=== PATIENT | female | born 1955 | race Caucasian/White ===

== ENCOUNTER → 2018-08-15 10:24 | Outpatient (CLI) | payer OTHER, SELFPAY ==
--- NOTE | 2018-08-15 10:25 | DI.US.S_ITS ---
LIMITED ULTRASOUND OF LEFT BREAST: 08/15/2018 CLINICAL: Follow up from addtional views. Comparison is made to exams dated: 08/15/2018 mammogram, 01/15/2018 mammogram, 07/18/2017 breast MRI - [facility], 07/08/2017 ultrasound, and 07/08/2017 mammogram - [facility]. Real-time and Doppler ultrasound of the left breast upper outer quadrant/axillary tail/axilla were performed. Reilly scale images of the real-time examination were reviewed. No underlying breast mass or abnormality is identified. There is no ultrasound correlate for the previously noted stable 1.8 cm asymmetry in the left breast posterior depth superior region seen on the mediolateral oblique view only. This asymmetry was similar in appearance on diagnostic mammography performed immediately prior to this ultrasound exam to prior comparison mammograms of 06/26/17 and 01/15/18, and appeared to correlate with the findings seen on breast MRI of 07/18/2017. IMPRESSION: PROBABLY BENIGN No ultrasound correlate for the previously noted stable 1.8 cm asymmetry in the left breast posterior depth superior region seen on the mediolateral oblique view only of comparison diagnostic mammograms. A follow-up diagnostic mammogram and possible ultrasound in 6 months is recommended to demonstrate stability. These results and recommendations were discussed with the patient at the time of the exam by Dr. Alarcon by telephone. The patient was advised to monitor her breasts and to return sooner for re-evaluation should she feel anything grow or change. This exam was interpreted at Station ID: [id number]. Electronically Signed By: Jose D Alarcon M.D. ecl/:08/16/2018 09:45:34 letter sent: Followup Recommended Ultrasound BI-RADS: 3 Probably benign
--- NOTE | 2018-08-15 10:25 | DI.MG.S_ITS ---
BILATERAL DIGITAL DIAGNOSTIC MAMMOGRAM 3D/2D: 08/15/2018 CLINICAL: Short term follow up left breast, due bilaterally. Comparison is made to exams dated: 01/15/2018 mammogram - [facility], 07/08/2017 mammogram - [facility], 06/26/2017 mammogram, 06/01/2016 mammogram, 07/18/2017 breast MRI - [facility], and 07/08/2017 ultrasound - [facility]. The tissue of both breasts is extremely dense, which lowers the sensitivity of mammography. There is a stable 1.8 cm asymmetry in the left breast posterior depth superior region seen on the mediolateral oblique view only, which is similar in appearance to prior comparison mammograms of 06/26/17 and 01/15/18, and appears to correlate with the findings seen on breast MRI of 07/18/2017. A linear scar marker projects over the upper outer left breast. No other significant masses, calcifications, or other findings are seen in either breast. IMPRESSION: INCOMPLETE: NEEDS ADDITIONAL IMAGING EVALUATION Stable 1.8 cm asymmetry in the left breast posterior depth superior region seen on the mediolateral oblique view only. A targeted ultrasound is recommended for further evaluation, and will be performed immediately following this exam. This exam was interpreted at Station ID: [id number]. NOTE: For mammograms, a report in lay terms will be sent to the patient. Approximately 15% of breast malignancies will not be visualized mammographically. In the management of a palpable breast mass, a negative mammogram must not discourage biopsy of a clinically suspicious lesion. Electronically Signed By: Jose D Alarcon M.D. ecl/:08/16/2018 09:40:50 letter sent: Additional Imaging Needed ACR BI-RADS Category 0: Incomplete 3340F
== END ==
PROVIDERS: Family Provider Obstetrics & Gynecology; PCP Obstetrics & Gynecology; Visit Provider Obstetrics & Gynecology
DX: R92.8 Other abnormal and inconclusive findings on diagnostic imaging of breast (principal); N64.89 Other specified disorders of breast
CPT/HCPCS: 76642; 77066; G0279

== ENCOUNTER → 2019-04-14 14:46 | Outpatient (CLI) | payer OTHER, SELFPAY ==
--- NOTE | 2019-04-14 14:48 | DI.MG.S_ITS ---
UNILATERAL LEFT DIGITAL DIAGNOSTIC MAMMOGRAM 3D/2D SHORT-TERM FOLLOW-UP: 04/14/2019 CLINICAL: Patient returns for a 6 month follow up of the left breast. Comparison is made to exams dated: 08/15/2018 mammogram, 01/15/2018 mammogram, 07/18/2017 breast MRI - [facility], 07/08/2017 mammogram - [facility], 06/26/2017 mammogram - [facility], and 07/08/2017 ultrasound - [facility]. The tissue of left breast is heterogeneously dense. This may lower the sensitivity of mammography. There is an oval equal density asymmetry with indistinct margins in the left breast posterior depth superior region seen on the mediolateral oblique view only. This is not significantly changed over time compared to prior studies dating back to 06/26/17. No other significant masses or calcifications are seen in the breast. IMPRESSION: PROBABLY BENIGN The oval equal density asymmetry in the left breast is probably benign. A follow-up mammogram in 6 months is recommended to demonstrate 2 year stability. A follow-up mammogram in 6 months is recommended to demonstrate stability. Findings were discussed with Dr. Logan by phone at the conclusion of the exam. This exam was interpreted at Station ID: [id number]. NOTE: For mammograms, a report in lay terms will be sent to the patient. Approximately 15% of breast malignancies will not be visualized mammographically. In the management of a palpable breast mass, a negative mammogram must not discourage biopsy of a clinically suspicious lesion. Electronically Signed By: Leno jackson/:04/14/2019 15:47:51 letter sent: Followup Recommended ACR BI-RADS Category 3: Probably benign [id number]
== END ==
PROVIDERS: PCP Obstetrics & Gynecology; Visit Provider Obstetrics & Gynecology
DX: R92.8 Other abnormal and inconclusive findings on diagnostic imaging of breast (principal)
CPT/HCPCS: 77065; G0279

== ENCOUNTER → 2019-04-30 10:22 | Outpatient (CLI) | payer OTHER, SELFPAY ==
[2019-04-30 11:01] LABS: Add Manual Diff / Slide Review NO; Basophils Absolute Auto 0 /uL (0-100); Basophils Percent Auto 0.3 % (0-2); Eosinophils Absolute Auto 200 /uL (0-450); Eosinophils Percent Auto 3.3 % (2-4); Hematocrit 42.2 % (36-46); Lymphocytes Absolute Auto 2000 /uL (1100-4500); Lymphocytes Percent Auto 27.7 % (25-40); Mean Corpuscular HGB Conc 33.3 % (30-36); Mean Corpuscular Hemoglobin 30.8 PG (26-34); Mean Corpuscular Volume 92.5 fL (80-100); Monocytes Absolute Auto 600 /uL (0-900); Monocytes Percent Auto 8.9 % (3-14); Neutrophils Absolute Auto 4300 /uL (1500-7000); Neutrophils Percent Auto 59.8 % (50-75); Platelet Count 239 X10^3/uL (150-400); Red Blood Cell Count 4.56 X10^6/uL (4.0-5.2); Red Cell Distribution Width 13.4 % (11.6-14.8); White Blood Cell Count 7.1 X10^3/uL (4.5-11.0)
[2019-04-30 11:21] LABS: Alanine Aminotransferase 17 IU/L (9-52); Albumin Globulin Ratio 1.5 (1.0-2.8); Alkaline Phosphatase 44 U/L (38-126); Aspartate Aminotransferase 22 IU/L (14-36); BUN Creatinine Ratio 22.9 (6-22); Bilirubin Total 0.8 mg/dL (0.2-1.3); Blood Urea Nitrogen 16 mg/dL (7-17); Calcium 9.3 mg/dL (8.4-10.2); Carbon Dioxide 28 mmol/L (22-32); Chloride 103 mmol/L (98-107); Cholesterol 191 mg/dL (140-199); Estimated Glomerular Filt Rate > 60.0 mL/min (>60); Globulin 2.7 g/dL (1.7-4.1); Glucose 92 mg/dL (80-110); HDL Cholesterol 59 mg/dL (40-60); HEMOLYSIS < 15 (0-50); LDL Cholesterol Calculated 119 mg/dL (<100); Potassium 4.4 mmol/L (3.4-5.1); Sodium 140 mmol/L (137-145); Total Protein 6.7 g/dL (6.3-8.2); Triglycerides 64 mg/dL (35-150)
[2019-04-30 11:33] LABS: Free T4, Direct Thyroxine 1.17 ng/dL (0.78-2.19)
[2019-04-30 11:48] LABS: Thyroid Stimulating Hormone 1.82 uIU/mL (0.47-4.68)
== END ==
PROVIDERS: PCP Obstetrics & Gynecology; Visit Provider Obstetrics & Gynecology
DX: E03.9 Hypothyroidism, unspecified (principal)
CPT/HCPCS: 36415; 80053; 80061; 84439; 84443; 85025

== ENCOUNTER → 2019-10-12 09:30 | Outpatient (CLI) | payer OTHER, SELFPAY ==
--- NOTE | 2019-10-12 09:31 | DI.MG.S_ITS ---
BILATERAL DIGITAL DIAGNOSTIC MAMMOGRAM 3D/2D: 10/12/2019 CLINICAL: Short term follow up left breast for 2 years, due bilaterally. Comparison is made to exams dated: 04/14/2019 mammogram, 08/15/2018 ultrasound, 08/15/2018 mammogram, 07/18/2017 breast MRI - [facility], 07/08/2017 mammogram, and 07/08/2017 ultrasound - [facility]. The tissue of both breasts is heterogeneously dense. This may lower the sensitivity of mammography. There is an oval equal density asymmetry with an indistinct margin in the left breast posterior depth superior region seen on the mediolateral oblique view only. This is not significantly changed compared to the prior studies but correlates to the area of reported new pain. There also is an oval equal density asymmetry with an indistinct margin in the left breast at 6 o'clock middle depth. This is less prominent on additional views. No other significant masses, calcifications, or other findings are seen in either breast. IMPRESSION: INCOMPLETE: NEEDS ADDITIONAL IMAGING EVALUATION The oval equal density asymmetry in the left breast posterior depth superior region seen on the mediolateral oblique view only is stable compared to prior studies dating back to 2017. However, given new pain symptoms in the region, an ultrasound is recommended for further evaluation. The oval equal density asymmetry in the left breast at 6 o'clock middle depth is indeterminate. This appears to compress out on additional views, but an ultrasound is recommended for confirmation. The findings were personally discussed with the patient at the conclusion of the study by telephone. This exam was interpreted at Station ID: [id number]. NOTE: For mammograms, a report in lay terms will be sent to the patient. Approximately 15% of breast malignancies will not be visualized mammographically. In the management of a palpable breast mass, a negative mammogram must not discourage biopsy of a clinically suspicious lesion. Electronically Signed By: Leno Ferreira M.D. ddp/:10/12/2019 11:24:59 copy to: Jeanne Hale ACR BI-RADS Category 0: Incomplete 3340F
== END ==
PROVIDERS: PCP Obstetrics & Gynecology; Visit Provider Obstetrics & Gynecology
DX: R92.8 Other abnormal and inconclusive findings on diagnostic imaging of breast (principal); N64.89 Other specified disorders of breast
CPT/HCPCS: 77066; G0279

== ENCOUNTER → 2019-10-14 09:18 | Outpatient (CLI) | payer OTHER, SELFPAY ==
--- NOTE | 2019-10-14 09:20 | DI.US.S_ITS ---
LIMITED ULTRASOUND OF LEFT BREAST: 10/14/2019 CLINICAL: Focal left breast pain. Additional evaluation requested from prior study. Comparison is made to exams dated: 10/12/2019 mammogram, 04/14/2019 mammogram, 08/15/2018 mammogram, 01/15/2018 mammogram, and 08/15/2018 [facility]. Color flow and real-time ultrasound of the left breast 1 o'clock and 6-7 o'clock regions were performed. Reilly scale images of the real-time examination were reviewed. There is a 0.4 cm x 0.2 cm x 0.4 cm oval cystic structure with heterogeneous internal echos in the left breast at 6 o'clock anterior depth 4 cm from the nipple. This oval cyst displays posterior acoustic enhancement. Color flow imaging demonstrates that there is no vascularity present. It is uncertain if this correlates with mammography findings. No findings in the upper outer left breast to correspond to stable asymmetry and pain. IMPRESSION: PROBABLY BENIGN The 0.4 cm x 0.2 cm x 0.4 cm oval cyst in the left breast is probably a complicated cyst or less likely focal fibrocystic tissue and is probably benign. There is no abnormality seen in the left breast to correspond with the pain in the superior lateral quadrant. Follow-up mammogram for the mammographically seen 6:00 oval asymmetry, and 6 month follow up ultrasound for the possibly separate ultrasound finding. Findings and recommendations were conveyed to the patient at time of exam. This exam was interpreted at Station ID: [id number]. Electronically Signed By: Louisa martínez/:10/14/2019 10:28:27 copy to: Jeanne Hale letter sent: Followup Recommended Ultrasound BI-RADS: 3 Probably benign
== END ==
PROVIDERS: PCP Obstetrics & Gynecology; Visit Provider Obstetrics & Gynecology
DX: R92.8 Other abnormal and inconclusive findings on diagnostic imaging of breast (principal); N60.02 Solitary cyst of left breast; N64.4 Mastodynia; N64.89 Other specified disorders of breast
CPT/HCPCS: 76642

== ENCOUNTER → 2020-11-26 08:32 | Outpatient (CLI) | payer OTHER, SELFPAY ==
[2020-11-26 09:41] LABS: Cholesterol 205 mg/dL (140-199); Glucose 93 mg/dL (80-110); HDL Cholesterol 69 mg/dL (40-60); LDL Cholesterol Calculated 122 mg/dL (<100); Triglycerides 69 mg/dL (35-150)
[2020-11-26 10:13] LABS: TSH w/ Reflex to FT4 1.79 uIU/mL (0.47-4.68)
== END ==
PROVIDERS: PCP Obstetrics & Gynecology; Referring Provider Internal Medicine; Visit Provider Internal Medicine
DX: E78.2 Mixed hyperlipidemia (principal); E03.9 Hypothyroidism, unspecified
CPT/HCPCS: 36415; 80061; 82947; 84443

== ENCOUNTER → 2021-07-21 11:59 | Outpatient (CLI) | payer OTHER, SELFPAY ==
--- NOTE | 2021-07-21 12:01 | DI.US.S_ITS ---
LIMITED ULTRASOUND OF LEFT BREAST: 07/21/2021 CLINICAL: Patient returns for a 6 month follow up of the left breast. Comparison is made to exams dated: 07/21/2021 mammogram, 10/14/2019 ultrasound, 10/12/2019 mammogram, 04/14/2019 mammogram, 08/15/2018 ultrasound, and 08/15/2018 mammogram - [facility]. Color flow ultrasound of the left breast 5-7 o'clock region was performed. Reilly scale images of the real-time examination were reviewed. There is a benign 0.5 cm x 0.2 cm x 0.3 cm oval cyst in the left breast at 6 o'clock anterior depth 4 cm from the nipple. This oval cyst displays posterior acoustic enhancement. Color flow imaging demonstrates that there is no vascularity present. Cine images demonstrate many similar appearing lesions throughout the inferior breast. Given the multiplicity of the lesion and lack of suspicious features, these lesions are considered benign. IMPRESSION: BENIGN There is no sonographic evidence of malignancy. The 0.5 cm x 0.2 cm x 0.3 cm oval cyst in the left breast is consistent with a complicated cyst and is benign. A 1 year screening mammogram is recommended. This exam was interpreted at Station ID: [id number]. Electronically Signed By: Pedro marin/mary ellen:07/21/2021 13:49:17 copy to: Carloz Estrada letter sent: Normal Exam Ultrasound BI-RADS: 2 Benign
--- NOTE | 2021-07-21 12:01 | DI.MG.S_ITS ---
BILATERAL DIGITAL DIAGNOSTIC MAMMOGRAM 3D/2D: 07/21/2021 CLINICAL: Short term follow up of the left breast, due for bilateral imaging. Comparison is made to exams dated: 10/14/2019 ultrasound, 10/12/2019 mammogram, 04/14/2019 mammogram, 08/15/2018 mammogram - [facility], 07/08/2017 mammogram - [facility], and 06/26/2017 mammogram - [facility]. The tissue of both breasts is heterogeneously dense. This may lower the sensitivity of mammography. The oval asymmetry with an indistinct margin in the left breast at 6 o'clock middle depth is no longer seen. No other significant masses, calcifications, or other findings are seen in either breast. IMPRESSION: INCOMPLETE: NEEDS ADDITIONAL IMAGING EVALUATION An ultrasound is recommended to confirm the no longer seen oval asymmetry in the left breast middle depth. This exam was interpreted at Station ID: [id number]. NOTE: For mammograms, a report in lay terms will be sent to the patient. Approximately 15% of breast malignancies will not be visualized mammographically. In the management of a palpable breast mass, a negative mammogram must not discourage biopsy of a clinically suspicious lesion. Electronically Signed By: Pedro marin/mary ellen:07/21/2021 13:45:25 copy to: Carloz HINES BI-RADS Category 0: Incomplete 3340F
== END ==
PROVIDERS: PCP Obstetrics & Gynecology; Referring Provider Obstetrics & Gynecology; Visit Provider Obstetrics & Gynecology
DX: R92.8 Other abnormal and inconclusive findings on diagnostic imaging of breast (principal); N60.02 Solitary cyst of left breast
CPT/HCPCS: 76642; 77066; G0279

== ENCOUNTER → 2022-01-18 11:12 | Outpatient (CLI) | payer OTHER, SELFPAY ==
[2022-01-18 11:47] LABS: Hematocrit 41.6 % (36-46); Hemoglobin 14.2 g/dL (12.0-16.0); Mean Corpuscular HGB Conc 34.1 % (30-36); Mean Corpuscular Hemoglobin 30.9 PG (26-34); Mean Corpuscular Volume 90.6 fL (80-100); Platelet Count 253 X10^3/uL (150-400); Red Cell Distribution Width 14.2 % (11.6-14.8); White Blood Cell Count 9.5 X10^3/uL (4.5-11.0)
[2022-01-18 11:59] LABS: Alanine Aminotransferase 16 IU/L (<35); Albumin 4.3 g/dL (3.5-5.0); Albumin Globulin Ratio 1.4 (1.0-2.8); Alkaline Phosphatase 51 U/L (38-126); Aspartate Aminotransferase 24 IU/L (14-36); BUN Creatinine Ratio 20.8 (6-22); Bilirubin Total 0.6 mg/dL (0.2-1.3); Blood Urea Nitrogen 16 mg/dL (7-17); Carbon Dioxide 30 mmol/L (22-32); Chloride 106 mmol/L (98-107); Cholesterol 199 mg/dL (140-199); Estimated Glomerular Filt Rate > 60 mL/min (>60); Glucose 89 mg/dL (80-110); HDL Cholesterol 59 mg/dL (40-60); HEMOLYSIS < 15 (0-50); LDL Cholesterol Calculated 126 mg/dL (<100); Potassium 4.4 mmol/L (3.4-5.1); Sodium 142 mmol/L (137-145); Total Protein 7.3 g/dL (6.3-8.2); Triglycerides 68 mg/dL (35-150)
[2022-01-18 12:49] LABS: TSH w/ Reflex to FT4 0.84 uIU/mL (0.47-4.68)
== END ==
PROVIDERS: PCP Internal Medicine; Referring Provider Internal Medicine; Visit Provider Internal Medicine
DX: E03.9 Hypothyroidism, unspecified (principal); I48.0 Paroxysmal atrial fibrillation
CPT/HCPCS: 36415; 80053; 80061; 84443; 85027

== ENCOUNTER → 2022-03-09 09:12 | Outpatient (CLI) | payer OTHER, SELFPAY ==
--- NOTE | 2022-03-09 09:13 | DI.ECHO.S_ITS ---
[facility] +---------+ : : [address] : : : : [id number] : : : : Phone: [phone]+ Echocardiogram Report + + :Name: ADAMA WRIGHT Study Date: 03/09/2022 Height: 67 in : :[facility] ReadingLocation: Weight: 135 lb : : Gender: Female BSA: 1.7 m2 : :: 1955 Age: 66 yrs BP: 120/60 mmHg: :Reason For Study: Atrial fibrillation : :Ordering Physician: GLENIS, : :ANDREY Performed By: Bryan Gallo : :Referring: ANDREY GALVIN : + + Interpretation Summary The ejection fraction is estimated to be 60-65%. There are no focal wall motion abnormalities. Diastolic parameters suggest probable normal left ventricular diastolic function and normal filling pressures. The right ventricle is normal in size and function. The right ventricular systolic pressure is estimated to be at least 31 mmHg based on an estimated right atrial pressure of 3 mm Hg. No significant valvular disease. Procedure: A two-dimensional transthoracic echocardiogram with color flow and Doppler was performed. The study quality was technically adequate. Comparison is made with the echocardiogram of 02/24/2010. Left Ventricle: The left ventricle is normal in size and wall thickness. Left ventricular systolic function is normal. The ejection fraction is estimated to be 60-65%. There are no focal wall motion abnormalities. Diastolic parameters suggest probable normal left ventricular diastolic function and normal filling pressures. Right Ventricle: The right ventricle is normal in size and function. Atria: Both atria are normal in size. The interatrial septum grossly appears intact with no obvious evidence for an atrial septal defect. Mitral Valve: There is trace mitral regurgitation. Aortic Valve: The aortic valve is normal in structure and function. There is no hemodynamically significant valvular aortic stenosis. There is trace aortic regurgitation. Tricuspid Valve: The tricuspid valve is normal in structure and function. There is mild tricuspid regurgitation. The right ventricular systolic pressure is estimated to be at least 31 mmHg based on an estimated right atrial pressure of 3 mm Hg. Pulmonic Valve: The pulmonic valve is not well seen, but is grossly normal. There is trace pulmonic regurgitation. Great Vessels: The aortic root is normal size. The dimensions of the ascending aorta are normal. The IVC is of normal diameter and collapses greater than 50% with a sniff. This suggests a low right atrial pressure of 3 mm Hg. Pericardium/ Pleura There is no pericardial effusion. There is no pleural effusion. MMode/2D Measurements & Calculations LVIDd: 4.2 cm LVOT diam: 1.9 cm LVIDs: 2.8 cm Ao root diam: 2.6 cm FS: 34.5 % asc Aorta Diam: 2.6 cm IVSd: 0.78 cm LVPWd: 0.85 cm LV mendez. diameter/BSA (cm/m^2): 2.5 LV sys. diameter/BSA (cm/m^2): 1.6 LA A2 area: 11.7 cm2 RA long axis: 5.0 cm LA A4 area: 20.4 cm2 RA area: 15.2 cm2 LA length (vol): 4.7 cm RA vol: 39.4 ml LA vol: 42.7 ml RA : 23.0 ml/m2 LA vol index: 24.9 ml/m2 TAPSE: 3.3 cm Doppler Measurements & Calculations Ao V2 max: 119.8 cm/sec LVOT Max Jose: 103.9 cm/sec Ao V2 mean: 79.6 cm/sec LV V1 max P.3 mmHg Ao max P.7 mmHg LV V1 VTI: 24.1 cm Ao mean P.8 mmHg RICKY(I,D): 2.7 cm2 Ao V2 VTI: 25.6 cm RICKY(V,D): 2.5 cm2 sev ratio: 0.94 RICKY indexed to BSA (cm^2/m^2): 1.6 MV E max jose: 87.4 cm/sec TR max jose: 263.1 cm/sec MV A max jose: 87.0 cm/sec TR max P.7 mmHg MV E/A: 1.0 Med Peak E' Jose: 7.6 cm/sec E/E' med: 11.5 Lat Peak E' Jose: 7.2 cm/sec E/E' lat: 12.2 E/e' average: 11.9 MV dec time: 0.27 sec SV(LVOT): 69.7 ml Reading Physician:ALMA
== END ==
PROVIDERS: PCP Internal Medicine; Referring Provider Internal Medicine; Visit Provider Internal Medicine
DX: I07.1 Rheumatic tricuspid insufficiency (principal); I48.0 Paroxysmal atrial fibrillation
CPT/HCPCS: 93306

== ENCOUNTER → 2022-04-02 15:36 | Outpatient (CLI) | payer OTHER, SELFPAY ==
--- NOTE | 2022-04-02 15:38 | DI.MRI.S_ITS ---
PROCEDURE: MR PELVIS WO/W CON INDICATIONS: abdominal Mass TECHNIQUE: Coronal HASTE, sagittal breath-hold T2 FSE; axial T1 FSE with and without fat saturation through the pelvis. Optional long- and short-axis uterine nonbreath-hold T2 FSE through the uterus. Sagittal or axial dynamic VIBE during administration of contrast. Post-contrast axial or coronal VIBE/2-D FLASH with fat saturation from the iliac crests to the symphysis. Optional diffusion weighted imaging and ADC may be performed. COMPARISON: [facility], US, US PELVIC COMPLETE, 03/30/2022, 7:52. FINDINGS: Image quality: Excellent. Uterus: The uterus is retroverted, normal in size, and contains numerous rounded myometrial and subserosal masses. The largest mass in the anterior fundus measuring 2.5 x 2.4 x 2.7 cm which indents upon the endometrial stripe, and may be submucosal. The junctional zone is not visible due to myometrial heterogeneity. The endometrium appears to be normal in caliber. The cervix is normal. Vaginal canal is within normal limits. No suspicious cyst. Adnexa: Both ovaries are normal in size for age, without suspicious cystic or solid lesions. Urinary system: Bladder wall is normal in thickness. Distal ureters are non distended. Urethra appears normal in morphology. Nodes and vessels: No pelvic or inguinal adenopathy by size criteria. Iliac vessels are normal in size. Bowel and peritoneum: No pathologic free pelvic fluid. Inferior colon and small bowel loops are normal in caliber. Soft tissues: No inguinal hernias. No findings of pelvic floor incompetence in the absence of provocation. Bones: Marrow demonstrates normal overall signal. IMPRESSION: 1. Retroverted fibroid uterus. 2. Largest uterine fibroid may be partially submucosal, and displaces the endometrial stripe. Dictated by: Louisa Tee M.D. on 04/02/2022 at 17:30 Approved by: Louisa Tee M.D. on 04/02/2022 at 17:44
== END ==
PROVIDERS: PCP Internal Medicine; Referring Provider Obstetrics & Gynecology; Visit Provider Obstetrics & Gynecology
DX: N95.0 Postmenopausal bleeding (principal); D25.2 Subserosal leiomyoma of uterus; N85.4 Malposition of uterus; R19.00 Intra-abdominal and pelvic swelling, mass and lump, unspecified site
CPT/HCPCS: 72197; A9579

== ENCOUNTER 2023-03-29 06:49 | Day surgery (SDC) | payer MEDICARE, SELFPAY ==
[2023-03-29 07:13] VITALS: BP 135/72; PULSE 69; RESP 16; TEMP 36.2; O2SAT 97; BMI 21.9
[2023-03-29] MEDS: LACTATED RINGERS 1,000 ML 84 ML IV (07:29)
--- NOTE | 2023-03-29 07:29 | P.HP_ITS ---
History of Present Illness History of Present Illness Date Patient Seen: 03/29/23 Time Patient Seen: 07:36 Chief complaint: [facility] [place] Narrative: No family history for colon cancer, last scope within 10 years. irritation right wall of anus and blood on stool no pain related. [facility] Medical History Cardiac arrhythmia (~2009) Fibroid History of urinary incontinence Menopausal syndrome Paroxysmal atrial fibrillation Postmenopausal bleeding Thrombophilia Surgical History Anesthesia H/O parotidectomy History of breast biopsy (~1977) Family History Father Hyperlipidemia Hypertension History of heart disease Mother History of heart disease Hyperlipidemia Hypertension Stroke Brother High triglycerides Social History household members: spouse Smoking Status: Former smoker alcohol intake: never Meds Home Medications and Allergies Home Medications Medication Instructions Recorded Confirmed Type aspirin 81 mg tablet,delayed 162 mg PO DAILY 04/29/19 03/29/23 History release zolpidem 5 mg tablet 5 mg PO BEDTIME PRN sleep #60 tabs 10/25/21 08/06/22 Rx estradiol 1 mg tablet 0.5 mg PO DAILY #90 tabs 12/11/21 03/29/23 Rx tretinoin 0.05 % topical cream 1 applic topical BEDTIME PRN 01/18/22 03/29/23 History Sexual Activity bisoprolol fumarate 5 mg tablet 2.5 mg PO DAILY PRN palpitation 08/06/22 03/29/23 History flecainide 50 mg tablet 50 mg PO DAILY PRN palpitations 08/06/22 03/29/23 History norethindrone (contraceptive) 0.35 See Rx Instructions .Route 01/04/23 03/29/23 Rx mg tablet (Angelica) .COMPLEX #84 tabs peg 3350-electrolytes 236 240 ml PO Q10M #4,000 mL 02/08/23 Rx gram-22.74 gram-6.74 gram-5.86 gram solution (Golytely) levothyroxine 75 mcg tablet 75 mcg PO DAILY #90 tabs 02/14/23 03/29/23 Rx Allergies Allergy/AdvReac Type Severity Reaction Status Date / Time No Known Drug Allergies Allergy Verified 03/29/23 07:07 Review of Systems Review of Systems ROS: Yes All systems reviewed with the patient and are negative except as otherwise documented Exam Vital Signs (past 8 hours): - 03/29/23 07:13 Temperature 97.2 F L Pulse Rate 69 Respiratory Rate 16 Blood Pressure 135/72 Pulse Oximetry 97 Oxygen Delivery Method Room Air Oxygen Delivery Method Room Air Const General: cooperative and healthy appearing Nutritional Appearance: thin HENMT Head: normocephalic and atraumatic Eyes General: appearance normal, both eyes and all related structures Sclera: sclerae normal Neck Neck: trachea midline Resp Effort & Inspection: normal respiratory effort and able to speak in complete sentences Cardio Rate: regular rate Rhythm: regular rhythm GI Palpation: soft Skin General: atrophy Neuro General: patient alert, patient awake and patient oriented x3 Cognition: normal cognition Psych Mental Status: mental status grossly normal Judgment: judgment good Assessment & Plan Assessment & Plan narrative: Colon cancer screening using colonoscopy with MAC Time Spent With Patient Time with patient: less than 30 minutes
--- NOTE | 2023-03-29 07:45 | PM.OP.COLON ---
Operative Date/Time/Diagnoses Date of procedure: 03/29/23 Time of procedure: 07:45 Pre-op diagnosis: Colon cancer screening Post-op diagnosis: same Procedure & Clinicians Study performed: Colonoscopy under MAC Same procedure as scheduled: Yes Indications: Colon cancer screening Surgeon: Carlotta Pearson Procedure Notes Procedure in detail: Preop diagnosis: Colon cancer screening Postop diagnosis: Same Operative procedure: Colonoscopy under MAC Surgeon: Sarina Pearson MD Findings: Normal colonoscopy. No polyps, no diverticulosis. Anal fissure at the 9 o'clock position (right side). Procedure: Patient placed in a lateral position. Rectal exam performed showing normal tone no masses. I can feel a linear firmness in the right wall of the anus with a length of 7 mm and a width of 1 mm. Scope inserted into the rectum and advanced to the ileocecal valve with minimal difficulty. Insufflation extraction of the scope and the above findings. Retroflex was included which could visualize the above-mentioned [place] currently ?dormant? with fibrinous exudate. Impression: Normal colonoscopy with small right-sided anal fissure. No polyps. Plan: Repeat colonoscopy in 10 years unless otherwise indicated by change in clinical condition Findings: other findings (Right-sided anal fissure) Specimen(s): none sent Complications: none Post-procedure Recommendations: Colonoscopy in 10 years Follow up: as needed Disposition: PACU
[2023-03-29 08:20] VITALS: BP 96/43; PULSE 57; RESP 17; TEMP 36.2; O2SAT 98
[2023-03-29 08:25] VITALS: BP 92/49; PULSE 54; RESP 18; O2SAT 98
[2023-03-29 08:30] VITALS: BP 107/46; PULSE 57; RESP 14; O2SAT 100
[2023-03-29 08:35] VITALS: BP 134/77; PULSE 57; RESP 12; TEMP 36.2; O2SAT 100
[2023-03-29 08:46] VITALS: BP 122/72; PULSE 77; RESP 16; TEMP 36.3; O2SAT 98
== END 2023-03-29 08:49 | disposition home or self-care (01) ==
PROVIDERS: PCP Internal Medicine; Referring Provider Surgery; Visit Provider Surgery
PROC: 0DJD8ZZ Inspection of Lower Intestinal Tract, Via Natural or Artificial Opening Endoscopic (ICD-10-PCS; CPT 45378; principal; 2023-03-29 07:45)
DX: Z12.11 Encounter for screening for malignant neoplasm of colon (principal); I48.91 Unspecified atrial fibrillation; Z79.01 Long term (current) use of anticoagulants; Z79.82 Long term (current) use of aspirin
CPT/HCPCS: G0121; J2250; J2704; J3010

== ENCOUNTER → 2023-12-04 11:12 | Outpatient (CLI) | payer MEDICARE, SELFPAY ==
--- NOTE | 2023-12-04 11:13 | DI.MG.S_ITS ---
BILATERAL DIGITAL SCREENING MAMMOGRAM 3D/2D WITH CAD: 12/04/2023 CLINICAL: Routine screening. Comparison is made to exams dated: 07/21/2021 mammogram, 10/12/2019 mammogram, and 08/15/2018 mammogram - [facility]. Both breasts are heterogeneously dense, which may obscure small masses (category c / 51-75% glandular tissue). Current study was also evaluated with a Computer Aided Detection (CAD) system. There are benign post operative findings in the left breast. No significant masses, calcifications, or other findings are seen in either breast. There has been no significant interval change. IMPRESSION: BENIGN There is no mammographic evidence of malignancy. A 1 year screening mammogram is recommended. Based on the Tyrer Cuzick model (a risk assessment model) the patient's lifetime risk is 7.8% and her 10 year risk is 3.9%. According to the ACR, ACS, and NCCN guidelines, an annual breast MRI exam along with mammogram is recommended if the patient's lifetime risk is 20% or greater. This exam was interpreted at Station ID: [id number]. NOTE: For mammograms, a report in lay terms will be sent to the patient. Approximately 15% of breast malignancies will not be visualized mammographically. In the management of a palpable breast mass, a negative mammogram must not discourage biopsy of a clinically suspicious lesion. Electronically Signed By: Rasheed osborne/mary ellen:12/04/2023 13:01:59 copy to: Carloz Estrada letter sent: Normal Exam ACR BI-RADS Category 2: Benign Finding(s) 3342F
== END ==
PROVIDERS: PCP Internal Medicine; Referring Provider Obstetrics & Gynecology; Visit Provider Obstetrics & Gynecology
DX: Z12.31 Encounter for screening mammogram for malignant neoplasm of breast (principal)
CPT/HCPCS: 77063; 77067

== ENCOUNTER → 2024-03-05 15:07 | Outpatient (CLI) | payer MEDICARE, SELFPAY ==
[2024-03-05 16:01] LABS: Hematocrit 40.5 % (36-46); Hemoglobin 13.8 g/dL (12.0-16.0); Mean Corpuscular Hemoglobin 31.3 PG (26-34); Mean Corpuscular Volume 91.9 fL (80-100); Platelet Count 251 X10^3/uL (150-400); Red Blood Cell Count 4.41 X10^6/uL (4.0-5.2); Red Cell Distribution Width 13.5 % (11.6-14.8); White Blood Cell Count 9.6 X10^3/uL (4.5-11.0)
[2024-03-05 16:28] LABS: Alanine Aminotransferase 18 IU/L (<35); Albumin 4.2 g/dL (3.5-5.0); Albumin Globulin Ratio 1.6 (1.0-2.8); Alkaline Phosphatase 50 U/L (38-126); Aspartate Aminotransferase 22 IU/L (14-36); BUN Creatinine Ratio 23.1 (6-22); Bilirubin Total 0.6 mg/dL (0.2-1.3); Blood Urea Nitrogen 18 mg/dL (7-17); Carbon Dioxide 30 mmol/L (22-32); Chloride 105 mmol/L (98-107); Cholesterol 192 mg/dL (140-199); Estimated Glomerular Filt Rate > 60 mL/min (>60); Globulin 2.6 g/dL (1.7-4.1); Glucose 99 mg/dL (80-110); HDL Cholesterol 60 mg/dL (40-60); HEMOLYSIS < 15 (0-50); LDL Cholesterol Calculated 105 mg/dL (<100); Potassium 3.9 mmol/L (3.4-5.1); Sodium 139 mmol/L (137-145); Total Protein 6.8 g/dL (6.3-8.2); Triglycerides 133 mg/dL (35-150)
[2024-03-05 17:00] LABS: TSH w/ Reflex to FT4 0.87 uIU/mL (0.47-4.68)
== END ==
PROVIDERS: PCP Internal Medicine; Referring Provider Internal Medicine; Visit Provider Internal Medicine
DX: I48.0 Paroxysmal atrial fibrillation (principal); E03.9 Hypothyroidism, unspecified
CPT/HCPCS: 36415; 80053; 80061; 84443; 85027

== ENCOUNTER → 2024-10-21 10:48 | Outpatient (CLI) | payer MEDICARE, OTHER, SELFPAY ==
--- NOTE | 2024-10-21 10:50 | DI.RAD.S_ITS ---
PROCEDURE: XR DEXA AXIAL SKELETON INDICATIONS: postmenopausal COMPARISON: None. FINDINGS: Lumbar Spine: Bone mineral density 1.0 g/cm2, T score -0.4, normal. Left Femoral Neck: Bone mineral density 0.753 g/cm2, T score -0.9. Left Hip: Bone mineral density 0.847 g/cm2, T score 0.8, normal. Fracture Risk Calculation (when applicable): Not reported due to normal bone mineralization. (T score greater or equal to -1.0 to: NORMAL) (T score from -1.1 to -2.4: OSTEOPENIA) (T score less than or equal to -2.5: OSTEOPOROSIS) IMPRESSION: Normal bone mineralization. Follow-up guidelines as follows: Osteoporosis: Consider a repeat DEXA and Vertebral Fracture Assessment (VFA) exam in 2 years or sooner if medically necessary, to reassess this patient's status. Osteopenia: Consider a repeat DEXA in 2-3 years to reassess this patient's status, or if there is a new clinical indication. Normal: Consider a repeat DEXA in 5 years or sooner, or if there is a new clinical indication. All treatment decisions require clinical judgment and consideration of individual patient factors, including patient preferences, comorbidities, previous drug use, risk factors not captured in the FRAX model (e.g., frailty, falls, vitamin D deficiency, increased bone turnover, interval significant decline in bone density ) and possible under- or over-estimation of fracture risk by FRAX. In addition, the NOF Guide recommends that FDA-approved medical therapies be considered in postmenopausal women and men age >= 50 years with a: * Hip or vertebral (clinical or morphometric) fracture * T-score of <=-2.5 at the spine or hip * Ten-year fracture probability by FRAX of >= 3% for hip fracture or >=20% for major osteoporotic fracture. Dictated by: Sánchez Snider M.D. on 10/21/2024 at 13:40 Approved by: Sánchez Snider M.D. on 10/21/2024 at 13:42
== END ==
PROVIDERS: PCP Internal Medicine; Referring Provider Internal Medicine; Visit Provider Internal Medicine
DX: M85.89 Other specified disorders of bone density and structure, multiple sites
CPT/HCPCS: 77080

== ENCOUNTER → 2025-03-24 08:29 | Outpatient (CLI) | payer MEDICARE, OTHER, SELFPAY ==
[2025-03-24 09:42] LABS: Hematocrit 42.8 % (36-46); Hemoglobin 14.6 g/dL (12.0-16.0); Mean Corpuscular HGB Conc 34.1 % (30-36); Mean Corpuscular Hemoglobin 31.4 PG (26-34); Mean Corpuscular Volume 92.0 fL (80-100); Platelet Count 242 X10^3/uL (150-400)
[2025-03-24 10:17] LABS: Alanine Aminotransferase 16 IU/L (<35); Albumin 4.3 g/dL (3.5-5.0); Albumin Globulin Ratio 1.8 (1.0-2.8); Alkaline Phosphatase 47 U/L (38-126); Blood Urea Nitrogen 15 mg/dL (7-17); Calcium 9.7 mg/dL (8.4-10.2); Carbon Dioxide 31 mmol/L (22-32); Chloride 104 mmol/L (98-107); Cholesterol 198 mg/dL (140-199); Estimated Glomerular Filt Rate > 60 mL/min (>60); Globulin 2.4 g/dL (1.7-4.1); Glucose 81 mg/dL (70-99); HDL Cholesterol 58 mg/dL (40-60); HEMOLYSIS < 15 (0-50); Potassium 4.7 mmol/L (3.4-5.1); Sodium 139 mmol/L (137-145); Total Protein 6.7 g/dL (6.3-8.2); Triglycerides 106 mg/dL (35-150)
[2025-03-24 10:37] LABS: TSH w/ Reflex to FT4 1.51 uIU/mL (0.47-4.68)
== END ==
PROVIDERS: PCP Internal Medicine; Referring Provider Internal Medicine; Visit Provider Internal Medicine
DX: E03.9 Hypothyroidism, unspecified (principal); I48.0 Paroxysmal atrial fibrillation; E78.2 Mixed hyperlipidemia
CPT/HCPCS: 36415; 80053; 80061; 84443; 85027

== ENCOUNTER → 2025-07-21 12:47 | Outpatient (CLI) | payer MEDICARE, OTHER, SELFPAY ==
--- NOTE | 2025-07-21 12:48 | DI.MG.S_ITS ---
MM screening mammo BI: 07/21/2025. BI-RADS: 1 CLINICAL: 69-year old female for bilateral screening mammogram. Tyrer-Cuzick lifetime risk of 9.5%. No personal or first-degree family history of breast cancer. The patient had a prior left breast biopsy. PRIOR EXAMS 12/04/2023, 07/21/2021, 10/14/2019, 10/12/2019. MAMMOGRAPHY TECHNIQUE: 2D and 3D (tomosynthesis) digital mammographic views obtained, with additional images as needed for full coverage. Current study was also evaluated with a Computer Aided Detection (CAD) system. DENSITY D. The breasts are extremely dense, which lowers the sensitivity of mammography. MAMMOGRAPHY FINDINGS Bilateral: No suspicious mass, asymmetry, microcalcification, or other abnormality seen. IMPRESSION: * No evidence of malignancy. RECOMMENDATIONS Bilateral * Annual screening mammography. OVERALL ASSESSMENT CATEGORY BI-RADS-1: Negative. The [employer] recommends annual screening mammography beginning at age 40 for women with average risk of breast cancer. ELECTRONICALLY SIGNED: Maegan Mann M.D. on 07/21/2025 at 05:01:08 PM PT Interpreting Station ID: [id number]
== END ==
LOC: MAMMO 12:47
PROVIDERS: PCP Internal Medicine; Referring Provider Internal Medicine; Visit Provider Internal Medicine
DX: Z12.31 Encounter for screening mammogram for malignant neoplasm of breast (principal); R92.343 Mammographic extreme density, bilateral breasts
CPT/HCPCS: 77063; 77067